=== PATIENT | male | born 1950 | race Caucasian/White ===

== ENCOUNTER 2020-05-19 15:02 | Observation (INO) ==
[2020-05-19] MEDS ORDERED: 0.9 % Sodium Chloride 1,000 ML IVC ONE ×2 (15:10→17:15)
[2020-05-19] MEDS ORDERED: Isovue-370 500 ML BOTTLE IVP ONE (15:11)
[2020-05-19] MEDS ORDERED: *HR* Dextrose 50 % in Water (Vial) 50 ML VIAL IVP ONE ×2 (15:13→19:58)
[2020-05-19 15:34] LABS: INR 1.3; Prothrombin Time 15.3 Seconds (9.4-12.1)
[2020-05-19 15:37] LABS: Activated Partial Thrombo Time 31.5 Seconds (26.0-36.0)
[2020-05-19 15:53] LABS: Alanine Aminotransferase 32 Units/L (7-52); Albumin/Globulin Ratio 0.7 (1.1-2.2); Alkaline Phosphatase 353 Units/L (34-104); Aspartate Amino Transferase 60 Units/L (13-39); BUN/Creatinine Ratio 15 (6-26); Bilirubin,Direct 0.6 mg/dL (0.0-0.2); Bilirubin,Indirect 0.5 mg/dL (0.0-1.0); Bilirubin,Total 1.1 mg/dL (0.3-1.0); Blood Urea Nitrogen 17 mg/dL (8-23); Calcium 8.8 mg/dL (8.6-10.3); Carbon Dioxide 23 mEq/L (23-29); Chloride 100 mEq/L (98-107); Ethanol < 10 mg/dL (Less than 10); Globulin 4.6 g/dL (2.4-3.5); Glucose 83 mg/dL (70-105); Osmolality,Calculated 281 (280-300); Potassium 4.2 mEq/L (3.5-5.1); Sodium 135 mEq/L (136-145); Total Protein 7.6 g/dL (6.4-8.9); Troponin I < 0.03 ng/mL (< 0.04); eGFR For African Americans > 60 (> 60); eGFR For Non-African Americans > 60 (> 60)
[2020-05-19 15:59] LABS: Thyroid Stimulating Hormone 4.403 mcIU/mL (0.340-5.600)
[2020-05-19 16:46] LABS: Basophils % 0.2 %; Eosinophils # 0.1 K/mcL (0.0-0.6); Eosinophils % 0.8 %; Hematocrit 28.9 % (37.5-50.1); Hemoglobin 8.4 g/dL (12.9-16.9); Immature Granulocytes % 0.4 % (0-4); Lymphocytes # 0.8 K/mcL (0.6-4.6); Mean Corpuscular HGB Conc 29.1 g/dL (31.6-35.5); Mean Corpuscular Hemoglobin 24.4 pg (28.0-33.3); Mean Platelet Volume 10.6 fL (9.4-12.4); Monocytes # 1.3 K/mcL (0.0-1.3); Monocytes % 11.4 %; Neutrophils # 9.1 K/mcL (1.6-8.9); Platelet Count 271 K/mcL (140-400); Red Blood Count 3.44 M/mcL (4.19-5.50); Red Cell Distribution Width 27.2 % (11.5-14.5); Segmented Neutrophils % 80.2 %; White Blood Count 11.4 K/mcL (4.3-11.1)
[2020-05-19 17:26] LABS: Anisocytosis 2+ (Not Present); Hypochromasia Present (Not Present); Platelet Estimate Normal (Normal)
[2020-05-19 17:59] LABS: Bilirubin,Urine Negative (Negative); Blood,Urine Negative (Negative); Clarity,Urine Clear (Clear); Color,Urine Yellow (Yellow); Glucose,Urine (UA) Normal (Normal); Ketones,Urine Negative (Negative); Leukocyte Esterase,Urine Negative (Negative); Nitrite,Urine Negative (Negative); Protein,Urine Trace mg/dL (Neg-Trace); Specific Gravity,Urine > 1.030 (1.010-1.025)
[2020-05-19 18:11] LABS: Amphetamine Screen,Urine Negative ng/mL (Cutoff=1000); Barbiturate Screen,Urine Negative ng/mL (Cutoff=200); Benzodiazepines Screen,Urine Negative ng/mL (Cutoff=200); Cannabinoid Screen,Urine Negative ng/mL (Cutoff = 50); Cocaine Screen,Urine Negative ng/mL (Cutoff= 300); Opiate Screen,Urine Positive ng/mL (Cutoff=300); Phencyclidine Screen,Urine Negative ng/mL (Cutoff=25)
[2020-05-19] MEDS ORDERED: D5% in Water 1,000 ML IVC PRN (18:43)
[2020-05-19] MEDS ORDERED: *HR* Dextrose 50 % in Water (Vial) 50 ML VIAL IVP PRN (18:43)
[2020-05-19] MEDS ORDERED: Dextrose Gel 15 GM/37.5 ML TUBE PO PRN ×2 (18:43)
[2020-05-19] MEDS ORDERED: D5% in 0.9% NACL 1,000 ML IVC SCH (19:45)
[2020-05-19] MEDS ORDERED: Ibuprofen 400 MG TABLET PO PRN (19:46)
[2020-05-19] MEDS ORDERED: Ondansetron 4 MG/2 ML VIAL IVP PRN (19:46)
[2020-05-19] MEDS ORDERED: Naloxone 0.4 MG/ML INJ IVP PRN (19:46)
[2020-05-19] MEDS: Insulin LISPRO 300 UNITS/3 ML VIAL SUBQ SCH (20:41)
[2020-05-20] MEDS ORDERED: Albuterol Neb 0.63 MG/3 ML VIAL IH PRN (00:37)
[2020-05-20 02:24] LABS: Basophils % 0.2 %; Eosinophils # 0.1 K/mcL (0.0-0.6); Eosinophils % 1.3 %; Hematocrit 27.7 % (37.5-50.1); Hemoglobin 8.1 g/dL (12.9-16.9); Immature Granulocytes % 0.3 % (0-4); Lymphocytes # 1.1 K/mcL (0.6-4.6); Lymphocytes % 10.3 %; Mean Corpuscular HGB Conc 29.2 g/dL (31.6-35.5); Mean Corpuscular Hemoglobin 24.3 pg (28.0-33.3); Mean Corpuscular Volume 83.2 fL (83.0-100.0); Mean Platelet Volume 11.1 fL (9.4-12.4); Monocytes # 1.4 K/mcL (0.0-1.3); Monocytes % 13.2 %; Neutrophils # 7.7 K/mcL (1.6-8.9); Platelet Count 278 K/mcL (140-400); Red Blood Count 3.33 M/mcL (4.19-5.50); Red Cell Distribution Width 27.3 % (11.5-14.5); Segmented Neutrophils % 74.7 %; White Blood Count 10.3 K/mcL (4.3-11.1)
[2020-05-20] MEDS ORDERED: Perflutren Lipid Microsphere 1.3 ML in 0.9 % Sodium Chloride 8.7 ML IVP PRN (02:33)
[2020-05-20 02:38] LABS: Alanine Aminotransferase 27 Units/L (7-52); Albumin 2.7 g/dL (3.5-5.7); Albumin/Globulin Ratio 0.7 (1.1-2.2); Alkaline Phosphatase 298 Units/L (34-104); Aspartate Amino Transferase 51 Units/L (13-39); BUN/Creatinine Ratio 15 (6-26); Bilirubin,Total 0.9 mg/dL (0.3-1.0); Blood Urea Nitrogen 14 mg/dL (8-23); Carbon Dioxide 23 mEq/L (23-29); Chloride 102 mEq/L (98-107); Globulin 3.9 g/dL (2.4-3.5); Glucose 131 mg/dL (70-105); Osmolality,Calculated 278 (280-300); Potassium 4.4 mEq/L (3.5-5.1); Sodium 133 mEq/L (136-145); Total Protein 6.6 g/dL (6.4-8.9); eGFR For African Americans > 60 (> 60); eGFR For Non-African Americans > 60 (> 60)
[2020-05-20 03:08] LABS: Anisocytosis 1+ (Not Present); Macrocytosis Present (Not Present); Platelet Estimate Normal (Normal)
[2020-05-20 03:09] LABS: Hypochromasia Present (Not Present)
[2020-05-20] MEDS: Pantoprazole 40 MG VIAL IVP SCH ×2 (04:32→16:55)
[2020-05-20] MEDS: Insulin LISPRO 300 UNITS/3 ML VIAL SUBQ SCH ×4 (07:17→19:54)
[2020-05-20] MEDS: Gabapentin 400 MG CAPSULE PO SCH ×2 (14:53→19:53)
[2020-05-20] MEDS: Aspirin Enteric Coated 81 MG Tablet PO SCH (14:53)
[2020-05-20] MEDS: Ranolazine 500 MG TAB.ER.12H PO SCH (14:53)
[2020-05-20] MEDS: amLODIPine 5 MG TABLET PO SCH (14:53)
[2020-05-20] MEDS: *HR* Heparin 5,000 UNIT/ML VIAL SQ SCH (16:54)
[2020-05-20] MEDS: *HR* OxyCODONE/APAP 5/325 TABLET PO PRN (17:07)
[2020-05-20] MEDS ORDERED: *HR* Propofol 500 MG/50 ML BOTTLE IVP ONE (17:10)
[2020-05-20] MEDS ORDERED: Lidocaine -MPF 4% 5 ML AMPUL TP ONE (17:10)
[2020-05-20] MEDS: Metoprolol 100 MG TABLET PO SCH (19:53)
[2020-05-20] MEDS: Ammonium Lactate 30 APPL/225 GM BOTTLE TP SCH (20:02)
[2020-05-20] MEDS ORDERED: Melatonin 3 MG TABLET PO SCH (21:00)
[2020-05-21] MEDS: *HR* Heparin 5,000 UNIT/ML VIAL SQ SCH (05:53)
[2020-05-21] MEDS: Pantoprazole 40 MG VIAL IVP SCH (05:54)
[2020-05-21] MEDS: Insulin LISPRO 300 UNITS/3 ML VIAL SUBQ SCH ×2 (07:12→11:26)
[2020-05-21 07:38] LABS: Basophils % 0.2 %; Red Cell Distribution Width 27.9 % (11.5-14.5)
[2020-05-21 07:39] LABS: Eosinophils # 0.1 K/mcL (0.0-0.6); Eosinophils % 1.6 %; Immature Granulocytes % 0.5 % (0-4); Lymphocytes % 11.4 %; Mean Corpuscular HGB Conc 28.6 g/dL (31.6-35.5); Mean Corpuscular Hemoglobin 24.2 pg (28.0-33.3); Mean Corpuscular Volume 84.6 fL (83.0-100.0); Mean Platelet Volume 10.9 fL (9.4-12.4); Monocytes # 1.3 K/mcL (0.0-1.3); Monocytes % 14.8 %; Platelet Count 237 K/mcL (140-400); Red Blood Count 3.31 M/mcL (4.19-5.50); Segmented Neutrophils % 71.5 %; White Blood Count 8.6 K/mcL (4.3-11.1)
[2020-05-21 07:41] LABS: BUN/Creatinine Ratio 16 (6-26); Blood Urea Nitrogen 14 mg/dL (8-23); Calcium 8.1 mg/dL (8.6-10.3); Carbon Dioxide 23 mEq/L (23-29); Chloride 107 mEq/L (98-107); Glucose 120 mg/dL (70-105); Osmolality,Calculated 286 (280-300); Potassium 4.2 mEq/L (3.5-5.1); Sodium 137 mEq/L (136-145); eGFR For African Americans > 60 (> 60); eGFR For Non-African Americans > 60 (> 60)
[2020-05-21 07:47] LABS: Anisocytosis 2+ (Not Present); Hypochromasia Present (Not Present); Neutrophils # 6.2 K/mcL (1.6-8.9); Platelet Estimate Normal (Normal)
[2020-05-21] MEDS: Ranolazine 500 MG TAB.ER.12H PO SCH (07:54)
[2020-05-21] MEDS: Metoprolol 100 MG TABLET PO SCH (07:54)
[2020-05-21] MEDS: amLODIPine 5 MG TABLET PO SCH (07:55)
[2020-05-21] MEDS: Aspirin Enteric Coated 81 MG Tablet PO SCH (07:55)
[2020-05-21] MEDS: Gabapentin 400 MG CAPSULE PO SCH (07:55)
[2020-05-21] MEDS: *HR* OxyCODONE/APAP 5/325 TABLET PO PRN (08:02)
[2020-05-21] MEDS ORDERED: allopurinoL 300 MG TABLET PO SCH (09:00)
[2020-05-21] MEDS ORDERED: Folic Acid 1 MG TABLET PO SCH (09:00)
[2020-05-21] MEDS ORDERED: lisinopriL 20 MG TABLET PO SCH (09:00)
[2020-05-21 09:12] LABS: Iron 36 mcg/dL (65-175)
[2020-05-21 09:28] LABS: Immature Reticulocyte % 24.6 % (11.0-38.0); Retculocyte # 0.1 M/mcL (0.05-0.10)
[2020-05-21 09:29] LABS: Ferritin 690 ng/mL (20-250)
[2020-05-21 09:41] LABS: Estimated Average Glucose 163 mg/dl; Hemoglobin A1C 7.3 %
[2020-05-21 10:32] LABS: Folate > 22.3 ng/mL (3.0-16.0); Vitamin B12 672 pg/mL (250-1100)
[2020-05-21] MEDS: Ammonium Lactate 30 APPL/225 GM BOTTLE TP SCH (11:24)
[2020-05-21 11:27] VITALS: BP 119/69
== END 2020-05-21 17:11 | disposition home or self-care (01) ==
LOC: 3BNU 15:02 → EMEROOARM 15:02 → SUATTDRO 18:09 → 3BNU 18:47
PROVIDERS: ADMIT Student in an Organized Health Care Education/Training Program; ATTEND Internal Medicine
PROC: ENDOEBX (2020-05-20 13:00)